=== PATIENT | female | born 1990 | race Caucasian/White ===

== ENCOUNTER 2016-08-08 21:42 | Emergency (ER) | payer OTHER ==
[~2016-08-08] VITALS: Ht 170.2 cm; Wt 90.7 kg
[2016-08-08 21:43] VITALS: BP 112/72
[2016-08-08] MEDS ORDERED: PENICILLIN V POTASSIUM 500 MG TAB PO ONE (23:15)
[2016-08-08] MEDS ORDERED: IBUPROFEN 800 MG TAB PO ONE (23:15)
[2016-08-08] MEDS ORDERED: PENI50TA PO (23:19)
== END 2016-08-08 23:25 | disposition home or self-care (01) ==
LOC: M ED 22:59
DX: K02.9 Dental caries, unspecified (principal); Z91.041 Radiographic dye allergy status